=== PATIENT | male | born 1985 | race Caucasian/White ===

== ENCOUNTER 2018-01-05 10:36 | Emergency (ER) | payer OTHER ==
[2018-01-05] MEDS ORDERED: Sodium Chloride 0.9% 1,000 ML IV ONE (11:22)
--- NOTE | 2018-01-05 11:23 | EDM.PDOC ---
ED HPI GENERAL MEDICAL PROBLEM - General Chief Complaint: Neurological Problem Stated Complaint: PASSED OUT Time Seen by Provider: 01/05/18 11:06 Source of Information: Reports: Patient History Limitations: Reports: No Limitations - History of Present Illness INITIAL COMMENTS - FREE TEXT/NARRATIVE: Patient is a 32-year-old male presents ED complaining of syncopal episode mild headache. Patient states he developed headache over the course of the evening. Awoke with the headache. It is described as generalized throbbing sensation with no photosensitivity or vision changes. While getting breakfast ready for his kids he started to not feel well and went to the bathroom to urinate. With walking back to his room became sweaty, pale, dizzy and passed out for a short period of time. 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 He landed on his left side of his chest causing a superficial abrasion to the left chest and left arm. Patient awoke immediately. Patient specks he was only out for a short period of time. Few seconds only. Upon awakening he was alert and oriented. Did not bite his tongue. There was no incontinence to urine or stool. Arm Pain Score (Numeric/FACES): 2 - Related Data Allergies Allergy/AdvReac Type Severity Reaction Status Date / Time No Known Allergies Allergy Verified 01/05/18 10:45 Home Meds: Home Meds . [No Known Home Meds] 01/05/18 [History] Past Medical History - Past Surgical History HEENT Surgical History: Reports: LASIK, Oral Surgery Social & Family History - Family History Family Medical History: Noncontributory - Tobacco Use Smoking Status *Q: Never Smoker - Caffeine Use Caffeine Use: Reports: Soda - Recreational Drug Use Recreational Drug Use: No ED ROS GENERAL - Review of Systems Review Of Systems: See Below Constitutional: Reports: Malaise, Fatigue, Decreased Appetite HEENT: Reports: Sinus Problem (congestion), Throat Pain (mild ). Denies: Ear Discharge, Ear Pain, Eye Pain, Vertigo, Vision Change Respiratory: Denies: Shortness of Breath, Wheezing, Pleuritic Chest Pain, Cough , Sputum, Hemoptysis Cardiovascular: Reports: Syncope. Denies: Chest Pain, Dyspnea on Exertion, Palpitations GI/Abdominal: Reports: Diarrhea, Decreased Appetite, Nausea. Denies: Abdominal Pain, Black Stool, Bloody Stool, Hematemesis, Hematochezia, Vomiting : Reports: No Symptoms Musculoskeletal: Reports: Neck Pain (left lateral) Skin: Reports: Other (superficial abrasion to the left anterior chest and left upper arm from fall. ) Neurological: Reports: Dizziness, Headache, Syncope. Denies: Confusion, Numbness, Tingling, Difficulty Walking, Weakness, Gait Disturbance - Physical Exam Exam: See Below Exam Limited By: No Limitations General Appearance: Alert, WD/WN, No Apparent Distress Eye Exam: Bilateral Eye: EOMI, Normal Inspection, PERRL Ears: Normal External Exam, Normal Canal, Hearing Grossly Normal, Normal TMs Nose: Normal Inspection Throat/Mouth: Normal Inspection, Normal Oropharynx, Normal Voice, No Airway Compromise Head Exam: Atraumatic, Normocephalic Neck: Normal Inspection, Supple, Non-Tender, Full Range of Motion Respiratory/Chest: No Respiratory Distress, Lungs Clear, Normal Breath Sounds, No Accessory Muscle Use, Chest Non-Tender, Other (Superfical abrasion to the left chest: no brusing, bleeding, or bony abnormalitie. No painwith palpation. ) Cardiovascular: Normal Peripheral Pulses, Regular Rate, Rhythm GI/Abdominal: Normal Bowel Sounds, Soft, Non-Tender, No Organomegaly, No Distention Neuro Exam (Abbreviated): Alert, Oriented, CN II-XII Intact, Normal Cognition Back Exam: Normal Inspection, Full Range of Motion. No: Paraspinal Tenderness, Vertebral Tenderness Extremities: Normal Inspection, Normal Range of Motion, Non-Tender, No Pedal Edema, Normal Capillary Refill Psychiatric: Normal Affect, Normal Mood Skin Exam: Warm, Dry, Intact, Normal Color, No Rash Course - Vital Signs Last Recorded V/S: Last Vital Signs Temp 97.2 F 01/05/18 10:41 Pulse 101 H 01/05/18 10:41 Resp 18 01/05/18 10:41 BP 96/79 01/05/18 10:41 Pulse Ox 98 01/05/18 10:41 Orthostatic Blood Pressure [ 103/73 Standing] Orthostatic Blood Pressure [ 109/79 Sitting] Orthostatic Blood Pressure [ 105/70 Supine] - Orders/Labs/Meds Orders: Active Orders 24 hr Category Date Time Status EKG Documentation Completion [RC] STAT Care 01/05/18 11:21 Active Orthostatic Vital Signs [RC] ASDIRECTED Care 01/05/18 11:23 Active POC Glucose [Blood Glucose Check, Bedside] [RC] ONETIME Care 01/05/18 11:22 Active Labs: Laboratory Tests 01/05/18 01/05/18 01/05/18 Range/Units 10:50 10:50 11:20 WBC 7.84 (4.23-9.07) K/mm3 RBC 5.11 (4.63-6.08) M/mm3 Hgb 14.2 (13.7-17.5) gm/L Hct 41.8 (40.1-51.0) % MCV 81.8 (79.0-92.2) fl MCH 27.8 (25.7-32.2) pg MCHC 34.0 (32.2-35.5) g/dl RDW Std Deviation 37.9 (35.1-43.9) fL Plt Count 188 (163-337) K/mm3 MPV 10.3 (9.4-12.3) fl Neutrophils % (Manual) 69 H (40-60) % Band Neutrophils % 0 (0-10) % Lymphocytes % (Manual) 30 (20-40) % Atypical Lymphs % 0 % Monocytes % (Manual) 1 L (2-10) % Eosinophils % (Manual) 0 L (0.8-7.0) % Basophils % (Manual) 0 L (0.2-1.2) Platelet Estimate Adequate RBC Morph Comment Normal Sodium 136 (136-145) mEq/L Potassium 4.0 (3.5-5.1) mEq/L Chloride 100 (98-107) mEq/L Carbon Dioxide 24 (21-32) mEq/L Anion Gap 16.0 H (5-15) BUN 21 H (7-18) mg/dL Creatinine 1.2 (0.7-1.3) mg/dL Est Cr Clr Drug Dosing 98.30 mL/min Estimated GFR (MDRD) > 60 (>60) mL/min BUN/Creatinine Ratio 17.5 (14-18) Glucose 128 H (74-106) mg/dL POC Glucose (70-105) mg/dL Calcium 8.7 (8.5-10.1) mg/dL Total Bilirubin 0.6 (0.2-1.0) mg/dL AST 20 (15-37) U/L ALT 20 (16-63) U/L Alkaline Phosphatase 90 (46-116) U/L Total Protein 7.7 (6.4-8.2) g/dl Albumin 4.1 (3.4-5.0) g/dl Globulin 3.6 gm/dL Albumin/Globulin Ratio 1.1 (1-2) TSH 3rd Generation 1.279 (0.358-3.74) uIU/mL Urine Color Light yellow (Yellow) Urine Appearance Clear (Clear) Urine pH 6.0 (5.0-8.0) Ur Specific [place] 1.010 (1.005-1.030) Urine Protein Negative (Negative) Urine Glucose (UA) Negative (Negative) Urine Ketones Negative (Negative) Urine Occult Blood Negative (Negative) Urine Nitrite Negative (Negative) Urine Bilirubin Negative (Negative) Urine Urobilinogen 0.2 (0.2-1.0) Ur Leukocyte Esterase Negative (Negative) Urine RBC Not seen (0-5) /hpf Urine WBC 0-5 (0-5) /hpf Ur Epithelial Cells Not seen (0-5) /hpf Urine Bacteria Not seen (FEW) /hpf Urine Mucus Not seen (FEW) /hpf 01/05/18 Range/Units 11:40 WBC (4.23-9.07) K/mm3 RBC (4.63-6.08) M/mm3 Hgb (13.7-17.5) gm/L Hct (40.1-51.0) % MCV (79.0-92.2) fl MCH (25.7-32.2) pg MCHC (32.2-35.5) g/dl RDW Std Deviation (35.1-43.9) fL Plt Count (163-337) K/mm3 MPV (9.4-12.3) fl Neutrophils % (Manual) (40-60) % Band Neutrophils % (0-10) % Lymphocytes % (Manual) (20-40) % Atypical Lymphs % % Monocytes % (Manual) (2-10) % Eosinophils % (Manual) (0.8-7.0) % Basophils % (Manual) (0.2-1.2) Platelet Estimate RBC Morph Comment Sodium (136-145) mEq/L Potassium (3.5-5.1) mEq/L Chloride (98-107) mEq/L Carbon Dioxide (21-32) mEq/L Anion Gap (5-15) BUN (7-18) mg/dL Creatinine (0.7-1.3) mg/dL Est Cr Clr Drug Dosing mL/min Estimated GFR (MDRD) (>60) mL/min BUN/Creatinine Ratio (14-18) Glucose (74-106) mg/dL POC Glucose 98 (70-105) mg/dL Calcium (8.5-10.1) mg/dL Total Bilirubin (0.2-1.0) mg/dL AST (15-37) U/L ALT (16-63) U/L Alkaline Phosphatase (46-116) U/L Total Protein (6.4-8.2) g/dl Albumin (3.4-5.0) g/dl Globulin gm/dL Albumin/Globulin Ratio (1-2) TSH 3rd Generation (0.358-3.74) uIU/mL Urine Color (Yellow) Urine Appearance (Clear) Urine pH (5.0-8.0) Ur Specific [place] (1.005-1.030) Urine Protein (Negative) Urine Glucose (UA) (Negative) Urine Ketones (Negative) Urine Occult Blood (Negative) Urine Nitrite (Negative) Urine Bilirubin (Negative) Urine Urobilinogen (0.2-1.0) Ur Leukocyte Esterase (Negative) Urine RBC (0-5) /hpf Urine WBC (0-5) /hpf Ur Epithelial Cells (0-5) /hpf Urine Bacteria (FEW) /hpf Urine Mucus (FEW) /hpf Meds: Medications Discontinued Medications Generic Name Dose Route Start Last Admin Trade Name Freq PRN Reason Stop Dose Admin Sodium Chloride 1,000 mls @ 999 mls/hr 01/05/18 11:22 01/05/18 11:29 Normal Saline IV 01/05/18 12:22 999 mls/hr ONETIME ONE Administration - Re-Assessments/Exams Free Text/Narrative Re-Assessment/Exam: IV established with normal saline 999 mls per hour. Initial labs and studies include: CBC, chem 14, TSH, UA, with slight vital signs , point care glucose, EKG, and head CT without contrast. IV established with normal saline 999 mls per hour. Initial labs and studies include: CBC, chem 14, TSH, UA, with slight vital signs , point care glucose, EKG, and head CT without contrast. POC: 98 EKG: Sinus rhythm at a rate of 88 with normal early repolarization pattern. QTc 425. Head CT: No acute abdomen is identified on noncontrast head CT. Labs reviewed: CBC was essentially normal. Sodium 136, potassium 4.0, CO2 24, AG 16, NH interval 1, creatinine 1.2, glucose 128, TSH within normal limits. UA revealed specific gravity of 1.010. No other concerning findings. 01/05/18 13:22 Reassessment, vital signs are stable. Patient got up and walked around the ED with no issues. He is ready be discharged home. Discharge instructions as documented. Departure - Departure Time of Disposition: 13:22 Disposition: Home, Self-Care 01 Condition: Good, Fair Clinical Impression: Vaso vagal episode - Discharge Information Instructions: Vasovagal Syncope, Adult Referrals: PCP,None [Primary Care Provider] - Forms: ED Department Discharge, ED Return to Work/School Form Additional Instructions: Push the fluids. Eat a balanced diet. Ensure adequate rest. If you feel dizzy with body position changes. Stop and allow for equilibrium prior to moving. May utilize Tylenol and or ibuprofen in alternating fashion for headache. Follow-up with PCP first part of this week for reevaluation. Return to the ED if you develop any new or worsening symptoms. - My Orders Last 24 Hours: My Active Orders 01/05/18 11:21 EKG Documentation Completion [RC] STAT 01/05/18 11:22 POC Glucose [Blood Glucose Check, Bedside] [RC] ONETIME 01/05/18 11:23 Orthostatic Vital Signs [RC] ASDIRECTED - Assessment/Plan Last 24 Hours: My Active Orders 01/05/18 11:21 EKG Documentation Completion [RC] STAT 01/05/18 11:22 POC Glucose [Blood Glucose Check, Bedside] [RC] ONETIME 01/05/18 11:23 Orthostatic Vital Signs [RC] ASDIRECTED
--- NOTE | 2018-01-05 12:14 | CT ---
Head CT Technique: Multiple axial sections through the brain were obtained. Intravenous contrast was not utilized. Comparison: No previous intracranial imaging is available. Findings: Ventricles along with basal cisterns and sulci over convexities are within normal limits for the patient's age. No abnormal parenchymal densities are seen. No evidence of intracranial hemorrhage. No midline shift or mass effect is seen. Bone window settings were reviewed which shows no acute calvarial abnormality. Visualized sinuses are clear. Impression: 1. No acute abnormality is identified on noncontrast head CT exam. Diagnostic code #1
== END 2018-01-05 13:35 | disposition home or self-care (01) ==
LOC: JD.ED 10:36
DX: R55 Syncope and collapse (principal)
CPT/HCPCS: 36415; 70450; 80053; 81001; 82962; 84443; 85025; 93005; 96360; 99284; J7040; 93010; 99283